=== PATIENT | male | born 1980 | race Caucasian/White ===

== ENCOUNTER 2018-02-27 11:20 | Emergency (ER) | payer OTHER, BC ==
[~2018-02-27] VITALS: Ht 177.8 cm; Wt 99.5 kg
[~2018-02-27 11:20] MED LIST: AZITTAB PO; CLR10 PO; MULT-506 PO; [UNRECOGNIZED DRUG - CODE] PO; [UNRECOGNIZED DRUG - OTHER]
[2018-02-27 11:33] VITALS: TEMP 36.7; Ht 177.8 cm; Wt 99.5 kg
--- NOTE | 2018-02-27 12:13 | EMERGENCY ROOM VISIT NOTE ---
History First contact with patient: 11:48 Chief Complaint: CHEMICAL EXPOSURE Stated Complaint: FLUSHING,SHALLOW BREATHING,NAUSEA Nursing Triage Summary: [place] had [place] for marijuana [id number]. pt was testing it and after began to have tingling, HTN, SOB, nausea. pt reports nausea still, denies SOB. pt c/o flushed feeling still. "They just said I should probably get checked out" History of Present Illness The patient is a 37 year old male who presents to the Emergency Room with complaints of feeling flushed and nauseated. He also states now he feels itchy. The patient states that he works as a guard at a correction and one of the inmates had marijuana HU210 concealed in the back of his watch. He states that he was testing the substance when his symptoms started. He was wearing gloves. The patient currently just feels itchy on his hands arms and torso. The patient denies any chest pain or shortness of breath. The patient denies any dizziness, visual changes or headache. Review of Systems 10 system review was performed and was negative unless stated otherwise history of present illness. Past Medical/Surgical History Hypertension, asthma, tonsillectomy, adenoidectomy, knee arthroscopic surgery Social History Smoking Status: Former Smoker Alcohol Use: occasionally Occupation Status: employed Current/Historical Medications Scheduled Azithromycin (Z-Jorge) (Zithromax (Z-Jorge)), 0 PO UD Glucosamine-Chondroitin (Glucosamine/Chondroitin), 2 TAB PO DAILY Loratadine (Claritin), 10 MG PO DAILY Multivitamin (Multivitamin), 1 TAB PO DAILY Miscellaneous Medications Meloxicam (Mobic Unknown Dose) Physical Exam Vital Signs Date Time Temp Pulse Resp B/P (MAP) Pulse Ox O2 Delivery O2 Flow Rate FiO2 02/27/18 11:33 36.7 97 16 149/88 99 Room Air Physical Exam GENERAL: 37-year-old white male appears in no acute distress. MENTAL Status: Alert and oriented 3. EYES: PERRLA. EOMs intact. PHARYNX: No erythema or edema noted. Airway is adequate. LUNGS: Clear auscultation without wheezes rales or rhonchi. CARDIAC: Regular rate and rhythm that murmur. Pulses is full and equal throughout. SKIN: No visible rashes noted. NEURO:Cranial nerves two through 12 intact. Cerebellar function intact with [id number]. Fine motor intact with alternating finger motions. Medical Decision & Procedures ED Course The patient was evaluated. The patient's case was discussed with Dr. Rivera who agreed with treatment plan. The patient was given Benadryl 50 mg p.o. Patient was discharged home in stable condition with a coworker driving. Medical Decision The patient did not have any significant exposure to the marijuana therefore I do not feel any additional testing is warranted. [place] Drug Monitoring Program Search Results: patient reviewed within database Medication Reconcilliation Current Medication List: was personally reviewed by me Blood Pressure Screening Patient's blood pressure: Elevated blood pressure Blood pressure disposition: Elevated BP felt to be situational Impression Primary Impression: Pruritus Departure Information Dispostion Home / Self-Care Condition GOOD Referrals Sb Villalta M.D. (PCP) Forms Call Back Authorization, HOME CARE DOCUMENTATION FORM, IMPORTANT VISIT INFORMATION Patient Instructions My [facility] [employer] Additional Instructions Recommend taking Benadryl 25 mg every 6 hours for itch until symptoms resolve. If you experience any neurologic symptoms such as severe headache, dizziness, altered mental status, chest pain return to ER immediately.
[2018-02-27] MEDS ORDERED: SERT25TA PO (12:22)
[2018-02-27] MEDS ORDERED: LISI10TA PO (12:22)
[2018-02-27] MEDS ORDERED: FEXO1TAB49 PO (12:22)
[2018-02-27 12:28] VITALS: BP 142/94; PULSE 85; O2SAT 98
== END 2018-02-27 12:29 | disposition home or self-care (01) ==
LOC: C.EDB 11:23 → C.EDD 12:29
DX: L29.9 Pruritus, unspecified (principal); Z87.891 Personal history of nicotine dependence